=== PATIENT | male | born 1995 | race Caucasian/White ===

== ENCOUNTER 2018-06-16 18:28 | Emergency (ER) | payer OTHER ==
[2018-06-16] MEDS ORDERED: KETOROLAC TROMETHAMINE 60 MG/2 ML VIAL ONE (18:54)
[2018-06-16] MEDS ORDERED: ONDANSETRON ODT 4 MG TAB ONE (18:55)
[2018-06-16] MEDS ORDERED: MORPHINE SULFATE 4 MG/1ML SYG ONE (18:55)
== END 2018-06-16 19:17 | disposition home or self-care (01) ==
LOC: EDH 18:28
DX: K02.9 Dental caries, unspecified (principal); Z98.890 Other specified postprocedural states; Z72.0 Tobacco use
CPT/HCPCS: 96372 ×2; 99283; J1885; J2270

== ENCOUNTER 2020-10-09 21:36 | Emergency (ER) | payer OTHER ==
[~2020-10-09] VITALS: Ht 182.9 cm; Wt 113.4 kg
[2020-10-09 22:14] VITALS: BP 116/83
[2020-10-10] MEDS ORDERED: CYCL10TA7 PO (00:07)
[2020-10-10] MEDS ORDERED: MELO7.5T12 PO (00:07)
[2020-10-10] MEDS ORDERED: IBUPROFEN 600 MG TABLET ONE (00:09)
[2020-10-10] MEDS ORDERED: ACETAMINOPHEN 500 MG TABLET ONE (00:09)
[2020-10-10 00:23] VITALS: BP 125/70
[2020-10-10] MEDS ORDERED: IBUPROFEN 600 MG TABLET PO ONE (00:30)
[2020-10-10] MEDS ORDERED: ACETAMINOPHEN 500 MG TABLET PO ONE (00:30)
== END 2020-10-10 00:24 | disposition home or self-care (01) ==
LOC: EDH 21:36
DX: S93.602A Unspecified sprain of left foot, initial encounter (principal); Z88.0 Allergy status to penicillin; Z88.1 Allergy status to other antibiotic agents; Z79.1 Long term (current) use of non-steroidal anti-inflammatories (NSAID); X58.XXXA Exposure to other specified factors, initial encounter; Y93.89 Activity, other specified; Y92.89 Other specified places as the place of occurrence of the external cause; Y99.8 Other external cause status
CPT/HCPCS: 73630